=== PATIENT | female | born 1970 | race Caucasian/White ===

== ENCOUNTER → 2017-11-11 | Emergency (ER) | payer OTHER ==
[~2017-11-11] VITALS: Ht 167.6 cm; Wt 108.9 kg
[~2017-11-11] MED LIST: GLIMEPIRIDE4 MG PO; GLUCOVANCE 5/501 TAB PO; METFORMIN HCL500 M1 PO; METFORMIN HCL500 M2 PO; PHENAGIL CH TA1 EACH PO
== END | disposition home or self-care (01) ==
LOC: ER 20:52
DX: B34.9 Viral infection, unspecified (principal); E11.649 Type 2 diabetes mellitus with hypoglycemia without coma

== ENCOUNTER 2023-03-13 17:32 | Emergency (ER) | payer OTHER ==
[~2023-03-13] VITALS: Ht 167.6 cm; Wt 117.9 kg
== END 2023-03-13 21:14 | disposition home or self-care (01) ==
LOC: ER 17:32
DX: E11.649 Type 2 diabetes mellitus with hypoglycemia without coma (principal); Z79.85 Long-term (current) use of injectable non-insulin antidiabetic drugs